=== PATIENT | male | born 1955 | race Caucasian/White ===

== ENCOUNTER 2020-12-07 09:29 | Inpatient (IN) | payer MEDICAID, OTHER ==
[~2020-12-07] VITALS: Ht 172.7 cm; Wt 83.7 kg
[~2020-12-07 09:29] MED LIST: ETOMIDATE 2MG/ML 10ML VIAL IV ONE; SUCCINYLCHOLINE CHLORIDE 200MG/10ML IV ONE
[2020-12-07] MEDS ORDERED: SUCCINYLCHOLINE CHLORIDE 200MG/10ML IV ONE (09:45)
[2020-12-07] MEDS ORDERED: ETOMIDATE 2MG/ML 10ML VIAL IV ONE (09:45)
[2020-12-07] MEDS ORDERED: PROPOFOL 10MG/ML 100ML 100 ML IV ONE (09:45)
[2020-12-07 09:57] LABS: HEMATOCRIT. 39.2 % (42.0-52.0); HEMOGLOBIN. 13.8 g/dL (14.0-18.0); MEAN CORPUSCULAR HEMOGLOBIN 31.8 pg (28.0-32.0); MEAN CORPUSCULAR VOLUME 90.2 fL (80.0-94.0); MEAN PLATELET VOLUME 7.1 fl (7.4-10.4); PLATELET 235 x1000/uL (130-400); RED BLOOD CELL COUNT 4.35 mill/uL (4.7-6.1); RED CELL DISTRIBUTION WIDTH 14.4 % (11.6-14.6)
[2020-12-07 10:04] LABS: CHLORIDE 109 mEq/L (98-107)
[2020-12-07 10:07] LABS: PROTHROMBIN TIME 11.1 sec (9.6-11.0)
[2020-12-07 10:09] LABS: ETHANOL BLOOD < 10 mg/dL
[2020-12-07 10:39] LABS: PLATELET ESTIMATE NORMAL
[2020-12-07 10:56] LABS: CLARITY URINE CLEAR (CLEAR); COLOR URINE DARK YELLOW (YELLOW); KETONES URINE NEGATIVE (NEGATIVE); LEUKOCYTE ESTERASE URINE NEGATIVE (NEGATIVE); NITRITE URINE NEGATIVE (NEGATIVE); OCCULT BLOOD URINE 3+ (NEGATIVE); PROTEIN URINE 3+ (NEGATIVE); SPECIFIC GRAVITY URINE 1.018 (1.005-1.030)
[2020-12-07 11:05] LABS: BG BASE EXCESS -5.3 mmol/L (-2.0-2.0); BG CARBOXYHEMOGLOBIN 0.6 % (0.5-1.5); BG DEOXYHEMOGLOBIN 10.1 % (0.0-5.0); BG HCO3 ACT 21.3 mmol/L (22.0-26.0); BG METHEMOGLOBIN 0.2 % (0.0-1.5); BG OXYGEN SATURATION 89.8 % (92.0-98.5); BG OXYHEMOGLOBIN 89.1 % (94.0-97.0); BG PCO2 45.6 mmHg (35.0-45.0); BG PH 7.287 (7.350-7.450); BG PO2 69.7 mmHg (75.0-100.0); BG SAMPLE SITE LEFT RADIAL; BG TOTAL HEMOGLOBIN 13.9 g/dL (12.0-18.0); BG VENT MODE VENT - AC
[2020-12-07] MEDS ORDERED: CEFTRIAXONE 1 G PREMIX 50 ML IV ONE (11:15)
[2020-12-07] MEDS ORDERED: AZITHROMYCIN 500 MG in DEXT 5% WATER 250 ML IV ONE (11:15)
[2020-12-07] MEDS ORDERED: DEXTROSE 50% WATER 50ML SYRINGE IV PRN (14:00)
[2020-12-07] MEDS ORDERED: IPRATROPIUM/ALBUTEROL 0.5-3(2.5)MG/3ML NEB NEB PRN (14:00)
[2020-12-07] MEDS ORDERED: DEXAMETHASONE 10 MG/ML VIAL IV SCH (15:00)
[2020-12-07] MEDS ORDERED: PROPOFOL 10MG/ML 100ML 100 ML IV PRN ×2 (15:15→15:30)
[2020-12-07] MEDS: DEXAMETHASONE 10 MG/ML VIAL IV SCH (15:17)
[2020-12-07] MEDS: ENOXAPARIN 30MG/0.3ML SYR SUBCUT SCH (16:00)
[2020-12-07] MEDS: BLOOD SUGAR DIAGNOSTIC STRIP TEST SCH ×2 (16:30→21:24)
[2020-12-07] MEDS: INSULIN LISPRO 100 UNITS/ML SUBCUT SCH ×2 (17:00→21:31)
[2020-12-07] MEDS: FAMOTIDINE 20MG/2ML VIAL IV SCH (21:25)
[2020-12-07] MEDS ORDERED: NOREPINEPHRINE 8MG/250ML PMX 250 ML IV PRN (22:15)
[2020-12-08] VITALS (24 sets, daily range): BP systolic 89–120; BP diastolic 52–72
[2020-12-08] MEDS: ENOXAPARIN 30MG/0.3ML SYR SUBCUT SCH (05:36)
[2020-12-08 05:39] LABS: CHLORIDE 107 mEq/L (98-107)
[2020-12-08 05:46] LABS: PHOSPHORUS 5.4 mg/dL (2.5-4.9)
[2020-12-08 05:55] LABS: HEMATOCRIT. 40.1 % (42.0-52.0); HEMOGLOBIN. 13.2 g/dL (14.0-18.0); MEAN CORPUSCULAR HEMOGLOBIN 30.6 pg (28.0-32.0); MEAN CORPUSCULAR VOLUME 92.6 fL (80.0-94.0); MEAN PLATELET VOLUME 7.8 fl (7.4-10.4); PLATELET 169 x1000/uL (130-400); RED BLOOD CELL COUNT 4.32 mill/uL (4.7-6.1); RED CELL DISTRIBUTION WIDTH 14.6 % (11.6-14.6)
[2020-12-08] MEDS: BLOOD SUGAR DIAGNOSTIC STRIP TEST SCH ×3 (06:57→20:04)
[2020-12-08] MEDS: INSULIN LISPRO 100 UNITS/ML SUBCUT SCH ×3 (07:14→20:12)
[2020-12-08 08:48] LABS: BG BASE EXCESS -6.2 mmol/L (-2.0-2.0); BG CARBOXYHEMOGLOBIN 0.3 % (0.5-1.5); BG DEOXYHEMOGLOBIN 0.9 % (0.0-5.0); BG FRACTION INSPIRED OXYGEN 100; BG HCO3 ACT 22.2 mmol/L (22.0-26.0); BG METHEMOGLOBIN 0.5 % (0.0-1.5); BG OXYGEN SATURATION 99.1 % (92.0-98.5); BG OXYHEMOGLOBIN 98.3 % (94.0-97.0); BG PCO2 55.5 mmHg (35.0-45.0); BG PH 7.219 (7.350-7.450); BG PO2 272.1 mmHg (75.0-100.0); BG SAMPLE SITE RIGHT RADIAL; BG TOTAL HEMOGLOBIN 14.9 g/dL (12.0-18.0); BG VENT MODE VENT - AC
[2020-12-08] MEDS ORDERED: FENTANYL CITRATE/PF 1,000 MCG in SODIUM CHLORIDE 0.9% 80 ML IV PRN (09:00)
[2020-12-08] MEDS: FAMOTIDINE 20MG/2ML VIAL IV SCH (09:10)
[2020-12-08] MEDS: DEXAMETHASONE 10 MG/ML VIAL IV SCH (09:10)
[2020-12-08] MEDS ORDERED: AZITHROMYCIN 500 MG in DEXT 5% WATER 250 ML IV SCH (10:00)
[2020-12-08] MEDS ORDERED: CEFTRIAXONE 1 G PREMIX 50 ML IV SCH (11:00)
[2020-12-08] MEDS: SODIUM CHLORIDE 0.9% 1,000 ML IV SCH ×2 (13:14→23:14)
[2020-12-08] MEDS ORDERED: VANCOMYCIN 2,000 MG in DEXT 5% WATER 500 ML IV NR (13:30)
[2020-12-08] MEDS ORDERED: SODIUM POLYSTYRENE SULFONATE 15 G/60 ML BOT PO SCH (14:00)
[2020-12-08 15:48] LABS: ATYPICAL LYMPHOCYTES 1; NUCLEATED RED BLOOD CELLS 1 /100 WBC
[2020-12-08 15:49] LABS: PLATELET ESTIMATE NORMAL
[2020-12-08] MEDS: PROPOFOL 10MG/ML 100ML 100 ML IV PRN ×2 (20:13→23:16)
[2020-12-09] VITALS (86 sets, daily range): BP systolic 76–129; BP diastolic 46–76
[2020-12-09] MEDS: BLOOD SUGAR DIAGNOSTIC STRIP TEST SCH ×4 (00:11→17:39)
[2020-12-09] MEDS: INSULIN LISPRO 100 UNITS/ML SUBCUT SCH ×4 (00:14→18:02)
[2020-12-09] MEDS: PROPOFOL 10MG/ML 100ML 100 ML IV PRN ×6 (03:59→20:59)
[2020-12-09] MEDS: ENOXAPARIN 40MG/0.4ML SYR SUBCUT SCH (05:20)
[2020-12-09 06:08] LABS: HEMATOCRIT. 33.8 % (42.0-52.0); HEMOGLOBIN. 11.3 g/dL (14.0-18.0); MEAN CORPUSCULAR HEMOGLOBIN 30.4 pg (28.0-32.0); MEAN CORPUSCULAR VOLUME 90.6 fL (80.0-94.0); MEAN PLATELET VOLUME 8.2 fl (7.4-10.4); PLATELET 184 x1000/uL (130-400); RED BLOOD CELL COUNT 3.73 mill/uL (4.7-6.1); RED CELL DISTRIBUTION WIDTH 14.1 % (11.6-14.6)
[2020-12-09 06:22] LABS: PHOSPHORUS 6.7 mg/dL (2.5-4.9)
[2020-12-09] MEDS ORDERED: NOREPINEPHRINE 8 MG in DEXTROSE 5% WATER 250 ML IV PRN (08:30)
[2020-12-09 09:55] LABS: BG BASE EXCESS -8.2 mmol/L (-2.0-2.0); BG CARBOXYHEMOGLOBIN 0.3 % (0.5-1.5); BG DEOXYHEMOGLOBIN 1.1 % (0.0-5.0); BG FRACTION INSPIRED OXYGEN 60; BG HCO3 ACT 19.7 mmol/L (22.0-26.0); BG METHEMOGLOBIN 0.3 % (0.0-1.5); BG OXYGEN SATURATION 98.9 % (92.0-98.5); BG OXYHEMOGLOBIN 98.3 % (94.0-97.0); BG PCO2 50.4 mmHg (35.0-45.0); BG PO2 167.6 mmHg (75.0-100.0); BG SAMPLE SITE RIGHT RADIAL; BG TOTAL HEMOGLOBIN 11.9 g/dL (12.0-18.0); BG VENT MODE VENT - AC
[2020-12-09] MEDS ORDERED: BISACODYL 10MG SUPP PR PRN (10:00)
[2020-12-09] MEDS: AZITHROMYCIN 500 MG in DEXT 5% WATER 250 ML IV SCH (10:20)
[2020-12-09] MEDS: FAMOTIDINE 20MG/2ML VIAL IV SCH (10:20)
[2020-12-09] MEDS: DOCUSATE SODIUM SUGAR FREE 100MG/10ML UDC NG SCH (10:20)
[2020-12-09] MEDS: DEXAMETHASONE 10 MG/ML VIAL IV SCH (10:20)
[2020-12-09] MEDS: SODIUM CHLORIDE 0.9% 1,000 ML IV SCH ×2 (10:21→19:00)
[2020-12-09] MEDS ORDERED: LIDOCAINE HCL 1% 20ML VIAL (Pyxis) INJ ONE (13:12)
[2020-12-09] MEDS: IPRATROPIUM/ALBUTEROL 0.5-3(2.5)MG/3ML NEB HHN SCH ×3 (16:10→20:31)
[2020-12-09 21:05] LABS: PLATELET ESTIMATE NORMAL
[2020-12-10] VITALS (94 sets, daily range): BP systolic 89–156; BP diastolic 45–86
[2020-12-10] MEDS: IPRATROPIUM/ALBUTEROL 0.5-3(2.5)MG/3ML NEB HHN SCH ×5 (00:27→15:58)
[2020-12-10] MEDS: BLOOD SUGAR DIAGNOSTIC STRIP TEST SCH ×4 (00:58→18:22)
[2020-12-10] MEDS: PROPOFOL 10MG/ML 100ML 100 ML IV PRN ×7 (01:00→22:40)
[2020-12-10] MEDS ORDERED: VANCOMYCIN 750 MG PREMIX 150 ML IV SCH (02:00)
[2020-12-10] MEDS: SODIUM CHLORIDE 0.9% 1,000 ML IV SCH ×2 (05:00→15:49)
[2020-12-10] MEDS: ENOXAPARIN 40MG/0.4ML SYR SUBCUT SCH (05:29)
[2020-12-10 05:42] LABS: HEMATOCRIT. 33.7 % (42.0-52.0); HEMOGLOBIN. 11.3 g/dL (14.0-18.0); MEAN CORPUSCULAR HEMOGLOBIN 30.7 pg (28.0-32.0); MEAN CORPUSCULAR VOLUME 91.4 fL (80.0-94.0); PLATELET 191 x1000/uL (130-400); RED BLOOD CELL COUNT 3.69 mill/uL (4.7-6.1)
[2020-12-10 05:56] LABS: PHOSPHORUS 5.4 mg/dL (2.5-4.9)
[2020-12-10] MEDS: INSULIN LISPRO 100 UNITS/ML SUBCUT SCH ×4 (06:00→18:33)
[2020-12-10] MEDS: DOCUSATE SODIUM SUGAR FREE 100MG/10ML UDC NG SCH (08:34)
[2020-12-10] MEDS: FENTANYL CITRATE 2,500 MCG in SODIUM CHLORIDE 0.9% 200 ML IV PRN (08:34)
[2020-12-10] MEDS: DEXAMETHASONE 10 MG/ML VIAL IV SCH (08:34)
[2020-12-10] MEDS: FAMOTIDINE 20MG/2ML VIAL IV SCH (08:34)
[2020-12-10 09:31] LABS: BG BASE EXCESS -8.4 mmol/L (-2.0-2.0); BG DEOXYHEMOGLOBIN 1.5 % (0.0-5.0); BG FRACTION INSPIRED OXYGEN 50; BG METHEMOGLOBIN 0.3 % (0.0-1.5); BG OXYGEN SATURATION 98.5 % (92.0-98.5); BG OXYHEMOGLOBIN 98.2 % (94.0-97.0); BG PCO2 40.5 mmHg (35.0-45.0); BG PH 7.266 (7.350-7.450); BG PO2 148.3 mmHg (75.0-100.0); BG SAMPLE SITE LEFT RADIAL; BG TOTAL HEMOGLOBIN 11.8 g/dL (12.0-18.0); BG VENT MODE VENT - AC
[2020-12-10] MEDS: AZITHROMYCIN 500 MG in DEXT 5% WATER 250 ML IV SCH (10:57)
[2020-12-10 10:58] LABS: PLATELET ESTIMATE NORMAL
[2020-12-10] MEDS ORDERED: VANCOMYCIN 1 G PREMIX 200 ML IV SCH (14:00)
[2020-12-10] MEDS: LACTULOSE 20G/30ML UDC PO PRN (18:22)
[2020-12-10] MEDS: ONDANSETRON HCL 4MG/2ML INJ IV PRN (22:02)
[2020-12-11] VITALS (88 sets, daily range): BP systolic 96–142; BP diastolic 21–73
[2020-12-11] MEDS: IPRATROPIUM/ALBUTEROL 0.5-3(2.5)MG/3ML NEB HHN SCH ×5 (04:30→20:30)
[2020-12-11] MEDS: BLOOD SUGAR DIAGNOSTIC STRIP TEST SCH ×4 (05:44→17:25)
[2020-12-11] MEDS: SODIUM CHLORIDE 0.9% 1,000 ML IV SCH ×2 (05:45→12:20)
[2020-12-11] MEDS: ENOXAPARIN 40MG/0.4ML SYR SUBCUT SCH (05:46)
[2020-12-11] MEDS: PROPOFOL 10MG/ML 100ML 100 ML IV PRN ×5 (05:47→22:19)
[2020-12-11] MEDS: FENTANYL CITRATE 2,500 MCG in SODIUM CHLORIDE 0.9% 200 ML IV PRN (05:49)
[2020-12-11] MEDS: INSULIN LISPRO 100 UNITS/ML SUBCUT SCH ×4 (06:00→17:27)
[2020-12-11 06:24] LABS: HEMATOCRIT. 31.8 % (42.0-52.0); HEMOGLOBIN. 10.6 g/dL (14.0-18.0); MEAN CORPUSCULAR HEMOGLOBIN 30.5 pg (28.0-32.0); MEAN CORPUSCULAR VOLUME 91.2 fL (80.0-94.0); MEAN PLATELET VOLUME 7.7 fl (7.4-10.4); PLATELET 181 x1000/uL (130-400); RED BLOOD CELL COUNT 3.48 mill/uL (4.7-6.1); RED CELL DISTRIBUTION WIDTH 14.2 % (11.6-14.6)
[2020-12-11 09:18] LABS: BG BASE EXCESS -7.5 mmol/L (-2.0-2.0); BG CARBOXYHEMOGLOBIN 0.1 % (0.5-1.5); BG DEOXYHEMOGLOBIN 3.5 % (0.0-5.0); BG FRACTION INSPIRED OXYGEN 40; BG HCO3 ACT 18.2 mmol/L (22.0-26.0); BG METHEMOGLOBIN 0.3 % (0.0-1.5); BG OXYGEN SATURATION 96.5 % (92.0-98.5); BG OXYHEMOGLOBIN 96.1 % (94.0-97.0); BG PCO2 37.4 mmHg (35.0-45.0); BG PH 7.304 (7.350-7.450); BG PO2 92.5 mmHg (75.0-100.0); BG SAMPLE SITE LEFT RADIAL; BG TOTAL HEMOGLOBIN 11.2 g/dL (12.0-18.0); BG VENT MODE VENT - AC
[2020-12-11] MEDS: AZITHROMYCIN 500 MG in DEXT 5% WATER 250 ML IV SCH (09:21)
[2020-12-11] MEDS: DEXAMETHASONE 10 MG/ML VIAL IV SCH (09:21)
[2020-12-11] MEDS: FAMOTIDINE 20MG/2ML VIAL IV SCH (09:21)
[2020-12-11] MEDS: DOCUSATE SODIUM SUGAR FREE 100MG/10ML UDC NG SCH (09:21)
[2020-12-11] MEDS: LACTULOSE 20G/30ML UDC PO PRN (12:06)
[2020-12-11 13:14] LABS: PHOSPHORUS 3.9 mg/dL (2.5-4.9)
[2020-12-11 13:40] LABS: PLATELET ESTIMATE NORMAL
[2020-12-11] MEDS ORDERED: PROPOFOL 10MG/ML 100ML 100 ML IV PRN (15:30)
[2020-12-11] MEDS: ONDANSETRON HCL 4MG/2ML INJ IV PRN (22:20)
[2020-12-12] VITALS (87 sets, daily range): BP systolic 102–182; BP diastolic 51–99
[2020-12-12] MEDS: IPRATROPIUM/ALBUTEROL 0.5-3(2.5)MG/3ML NEB HHN SCH ×6 (00:33→21:20)
[2020-12-12] MEDS: BLOOD SUGAR DIAGNOSTIC STRIP TEST SCH ×5 (00:35→23:49)
[2020-12-12] MEDS: PROPOFOL 10MG/ML 100ML 100 ML IV PRN ×6 (02:03→20:00)
[2020-12-12] MEDS: FENTANYL CITRATE 2,500 MCG in SODIUM CHLORIDE 0.9% 200 ML IV PRN ×2 (02:06→15:30)
[2020-12-12 05:11] LABS: HEMATOCRIT. 33.1 % (42.0-52.0); HEMOGLOBIN. 11.3 g/dL (14.0-18.0); MEAN CORPUSCULAR HEMOGLOBIN 30.7 pg (28.0-32.0); MEAN CORPUSCULAR VOLUME 89.9 fL (80.0-94.0); MEAN PLATELET VOLUME 7.8 fl (7.4-10.4); PLATELET 201 x1000/uL (130-400); RED BLOOD CELL COUNT 3.68 mill/uL (4.7-6.1); RED CELL DISTRIBUTION WIDTH 14.5 % (11.6-14.6)
[2020-12-12 05:25] LABS: PHOSPHORUS 3.8 mg/dL (2.5-4.9)
[2020-12-12] MEDS: INSULIN LISPRO 100 UNITS/ML SUBCUT SCH ×5 (06:00→23:50)
[2020-12-12] MEDS: SODIUM CHLORIDE 0.9% 1,000 ML IV SCH ×3 (06:23→21:59)
[2020-12-12] MEDS: ENOXAPARIN 40MG/0.4ML SYR SUBCUT SCH (06:24)
[2020-12-12 08:05] LABS: PLATELET ESTIMATE NORMAL
[2020-12-12 08:54] LABS: BG BASE EXCESS -9.5 mmol/L (-2.0-2.0); BG CARBOXYHEMOGLOBIN 0.3 % (0.5-1.5); BG DEOXYHEMOGLOBIN 2.8 % (0.0-5.0); BG HCO3 ACT 15.5 mmol/L (22.0-26.0); BG METHEMOGLOBIN 0.3 % (0.0-1.5); BG OXYGEN SATURATION 97.2 % (92.0-98.5); BG OXYHEMOGLOBIN 96.6 % (94.0-97.0); BG PCO2 30.8 mmHg (35.0-45.0); BG PH 7.319 (7.350-7.450); BG PO2 103.2 mmHg (75.0-100.0); BG SAMPLE SITE RIGHT RADIAL; BG TOTAL HEMOGLOBIN 11.2 g/dL (12.0-18.0); BG VENT MODE VENT - AC
[2020-12-12] MEDS: FAMOTIDINE 20MG/2ML VIAL IV SCH (09:10)
[2020-12-12] MEDS: DOCUSATE SODIUM SUGAR FREE 100MG/10ML UDC NG SCH (09:10)
[2020-12-12] MEDS: DEXAMETHASONE 10 MG/ML VIAL IV SCH (09:11)
[2020-12-12] MEDS ORDERED: SODIUM POLYSTYRENE SULFONATE 15 G/60 ML BOT PO NR (12:15)
[2020-12-12] MEDS: ONDANSETRON HCL 4MG/2ML INJ IV PRN (20:01)
[2020-12-12] MEDS: ENOXAPARIN 30MG/0.3ML SYR SUBCUT SCH (21:58)
[2020-12-13] VITALS (83 sets, daily range): BP systolic 102–186; BP diastolic 51–134
[2020-12-13] MEDS: IPRATROPIUM/ALBUTEROL 0.5-3(2.5)MG/3ML NEB HHN SCH ×6 (00:40→20:14)
[2020-12-13] MEDS: PROPOFOL 10MG/ML 100ML 100 ML IV PRN ×4 (02:27→19:11)
[2020-12-13] MEDS: FENTANYL CITRATE 2,500 MCG in SODIUM CHLORIDE 0.9% 200 ML IV PRN ×2 (02:31→16:05)
[2020-12-13 05:16] LABS: HEMATOCRIT. 33.7 % (42.0-52.0); HEMOGLOBIN. 11.3 g/dL (14.0-18.0); MEAN CORPUSCULAR HEMOGLOBIN 30.6 pg (28.0-32.0); MEAN CORPUSCULAR VOLUME 90.9 fL (80.0-94.0); MEAN PLATELET VOLUME 7.6 fl (7.4-10.4); PLATELET 237 x1000/uL (130-400); RED CELL DISTRIBUTION WIDTH 14.5 % (11.6-14.6)
[2020-12-13 05:41] LABS: PHOSPHORUS 3.2 mg/dL (2.5-4.9)
[2020-12-13] MEDS: BLOOD SUGAR DIAGNOSTIC STRIP TEST SCH ×3 (05:57→17:39)
[2020-12-13] MEDS: INSULIN LISPRO 100 UNITS/ML SUBCUT SCH ×3 (05:57→17:59)
[2020-12-13] MEDS: DEXAMETHASONE 10 MG/ML VIAL IV SCH (08:07)
[2020-12-13] MEDS: DOCUSATE SODIUM SUGAR FREE 100MG/10ML UDC NG SCH (08:07)
[2020-12-13] MEDS: FAMOTIDINE 20MG/2ML VIAL IV SCH (08:08)
[2020-12-13] MEDS: ENOXAPARIN 30MG/0.3ML SYR SUBCUT SCH ×2 (08:09→22:29)
[2020-12-13] MEDS: SODIUM CHLORIDE 0.9% 1,000 ML IV SCH (08:18)
[2020-12-13 11:57] LABS: PLATELET ESTIMATE NORMAL
[2020-12-13 12:58] LABS: BG BASE EXCESS -6.5 mmol/L (-2.0-2.0); BG CARBOXYHEMOGLOBIN 0.3 % (0.5-1.5); BG DEOXYHEMOGLOBIN 2.8 % (0.0-5.0); BG FRACTION INSPIRED OXYGEN 40; BG OXYGEN SATURATION 97.2 % (92.0-98.5); BG OXYHEMOGLOBIN 96.9 % (94.0-97.0); BG PCO2 32.3 mmHg (35.0-45.0); BG PH 7.365 (7.350-7.450); BG PO2 105.8 mmHg (75.0-100.0); BG SAMPLE SITE LEFT RADIAL; BG TOTAL HEMOGLOBIN 9.2 g/dL (12.0-18.0); BG VENT MODE VENT - AC
[2020-12-13] MEDS: ONDANSETRON HCL 4MG/2ML INJ IV PRN (21:21)
[2020-12-14] VITALS (89 sets, daily range): BP systolic 108–194; BP diastolic 51–109
[2020-12-14] MEDS: IPRATROPIUM/ALBUTEROL 0.5-3(2.5)MG/3ML NEB HHN SCH ×6 (00:04→21:31)
[2020-12-14] MEDS: BLOOD SUGAR DIAGNOSTIC STRIP TEST SCH ×4 (00:12→18:06)
[2020-12-14] MEDS: PROPOFOL 10MG/ML 100ML 100 ML IV PRN ×5 (01:47→17:32)
[2020-12-14] MEDS: SODIUM CHLORIDE 0.9% 1,000 ML IV SCH ×2 (01:48→21:20)
[2020-12-14] MEDS: FENTANYL CITRATE 2,500 MCG in SODIUM CHLORIDE 0.9% 200 ML IV PRN ×2 (03:50→17:34)
[2020-12-14 04:58] LABS: HEMATOCRIT. 33.1 % (42.0-52.0); HEMOGLOBIN. 11.3 g/dL (14.0-18.0); MEAN CORPUSCULAR HEMOGLOBIN 31.1 pg (28.0-32.0); MEAN CORPUSCULAR VOLUME 91.2 fL (80.0-94.0); MEAN PLATELET VOLUME 7.5 fl (7.4-10.4); PLATELET 246 x1000/uL (130-400); RED BLOOD CELL COUNT 3.63 mill/uL (4.7-6.1); RED CELL DISTRIBUTION WIDTH 14.4 % (11.6-14.6)
[2020-12-14 05:27] LABS: CHLORIDE 120 mEq/L (98-107)
[2020-12-14 05:37] LABS: PHOSPHORUS 3.9 mg/dL (2.5-4.9)
[2020-12-14] MEDS: INSULIN LISPRO 100 UNITS/ML SUBCUT SCH ×4 (06:00→18:00)
[2020-12-14] MEDS: DEXAMETHASONE 10 MG/ML VIAL IV SCH (08:26)
[2020-12-14] MEDS: DOCUSATE SODIUM SUGAR FREE 100MG/10ML UDC NG SCH (08:26)
[2020-12-14] MEDS: ENOXAPARIN 30MG/0.3ML SYR SUBCUT SCH ×2 (08:26→21:14)
[2020-12-14] MEDS: FAMOTIDINE 20MG/2ML VIAL IV SCH (08:27)
[2020-12-14] MEDS: HYDRALAZINE 20MG/ML VIAL IV PRN (09:28)
[2020-12-14 10:57] LABS: BG BASE EXCESS -6.7 mmol/L (-2.0-2.0); BG CARBOXYHEMOGLOBIN 0.1 % (0.5-1.5); BG DEOXYHEMOGLOBIN 4.1 % (0.0-5.0); BG FRACTION INSPIRED OXYGEN 40; BG HCO3 ACT 17.9 mmol/L (22.0-26.0); BG METHEMOGLOBIN 0.3 % (0.0-1.5); BG OXYGEN SATURATION 95.9 % (92.0-98.5); BG OXYHEMOGLOBIN 95.5 % (94.0-97.0); BG PCO2 33.1 mmHg (35.0-45.0); BG PH 7.352 (7.350-7.450); BG PO2 84.6 mmHg (75.0-100.0); BG SAMPLE SITE LEFT RADIAL; BG TOTAL HEMOGLOBIN 12.7 g/dL (12.0-18.0); BG VENT MODE VENT - AC
[2020-12-14 11:29] LABS: PLATELET ESTIMATE NORMAL
[2020-12-15] VITALS (73 sets, daily range): BP systolic 103–219; BP diastolic 50–121
[2020-12-15] MEDS: BLOOD SUGAR DIAGNOSTIC STRIP TEST SCH ×4 (00:07→17:48)
[2020-12-15] MEDS: PROPOFOL 10MG/ML 100ML 100 ML IV PRN ×2 (00:10→03:41)
[2020-12-15] MEDS: IPRATROPIUM/ALBUTEROL 0.5-3(2.5)MG/3ML NEB HHN SCH ×6 (01:26→21:05)
[2020-12-15] MEDS: FENTANYL CITRATE 2,500 MCG in SODIUM CHLORIDE 0.9% 200 ML IV PRN (04:54)
[2020-12-15 05:31] LABS: CHLORIDE 117 mEq/L (98-107)
[2020-12-15 05:40] LABS: HEMATOCRIT. 32.1 % (42.0-52.0); HEMOGLOBIN. 10.8 g/dL (14.0-18.0); MEAN CORPUSCULAR HEMOGLOBIN 30.7 pg (28.0-32.0); MEAN CORPUSCULAR VOLUME 91.8 fL (80.0-94.0); MEAN PLATELET VOLUME 7.2 fl (7.4-10.4); PHOSPHORUS 3.8 mg/dL (2.5-4.9); PLATELET 238 x1000/uL (130-400); RED CELL DISTRIBUTION WIDTH 14.6 % (11.6-14.6)
[2020-12-15] MEDS: INSULIN LISPRO 100 UNITS/ML SUBCUT SCH ×4 (05:42→17:48)
[2020-12-15] MEDS ORDERED: SODIUM POLYSTYRENE SULFONATE 15 G/60 ML BOT PO NR (08:30)
[2020-12-15 08:36] LABS: PLATELET ESTIMATE NORMAL
[2020-12-15 10:18] LABS: BG BASE EXCESS -4.6 mmol/L (-2.0-2.0); BG CARBOXYHEMOGLOBIN 0.5 % (0.5-1.5); BG FRACTION INSPIRED OXYGEN 40; BG HCO3 ACT 21.4 mmol/L (22.0-26.0); BG METHEMOGLOBIN 0.1 % (0.0-1.5); BG OXYHEMOGLOBIN 93.4 % (94.0-97.0); BG PH 7.314 (7.350-7.450); BG PO2 73.3 mmHg (75.0-100.0); BG SAMPLE SITE LEFT RADIAL; BG TOTAL HEMOGLOBIN 11.5 g/dL (12.0-18.0); BG VENT MODE VENT - AC
[2020-12-15] MEDS: DOCUSATE SODIUM SUGAR FREE 100MG/10ML UDC NG SCH (10:45)
[2020-12-15] MEDS: FAMOTIDINE 20MG/2ML VIAL IV SCH (10:45)
[2020-12-15] MEDS: DEXAMETHASONE 10 MG/ML VIAL IV SCH (10:45)
[2020-12-15] MEDS: ENOXAPARIN 30MG/0.3ML SYR SUBCUT SCH ×2 (10:46→21:07)
[2020-12-15] MEDS: HYDRALAZINE 20MG/ML VIAL IV PRN ×2 (10:50→18:08)
[2020-12-15 13:25] LABS: BG BASE EXCESS -4.7 mmol/L (-2.0-2.0); BG CARBOXYHEMOGLOBIN 0.4 % (0.5-1.5); BG DEOXYHEMOGLOBIN 6.5 % (0.0-5.0); BG FRACTION INSPIRED OXYGEN 40; BG HCO3 ACT 20.9 mmol/L (22.0-26.0); BG METHEMOGLOBIN 0.5 % (0.0-1.5); BG OXYGEN SATURATION 93.4 % (92.0-98.5); BG OXYHEMOGLOBIN 92.6 % (94.0-97.0); BG PCO2 40.7 mmHg (35.0-45.0); BG PH 7.329 (7.350-7.450); BG PO2 71.3 mmHg (75.0-100.0); BG SAMPLE SITE RIGHT RADIAL; BG TOTAL HEMOGLOBIN 12.9 g/dL (12.0-18.0); BG VENT MODE VENT - CPAP
[2020-12-15] MEDS: HYDRALAZINE HCL 25MG TABLET NG SCH ×2 (13:47→21:06)
[2020-12-15] MEDS: SODIUM CHLORIDE 0.9% 1,000 ML IV SCH (18:08)
[2020-12-15] MEDS ORDERED: HYDRALAZINE 20MG/ML VIAL IV PRN (18:45)
[2020-12-15] MEDS: CLONIDINE 0.1MG TABLET NG SCH ×2 (18:46→21:06)
[2020-12-15] MEDS ORDERED: HYDRALAZINE 20MG/ML VIAL IV NR (19:15)
[2020-12-15] MEDS ORDERED: CLONIDINE 0.1MG TABLET NG SCH (22:00)
[2020-12-16] VITALS (90 sets, daily range): BP systolic 121–198; BP diastolic 63–96
[2020-12-16] MEDS: IPRATROPIUM/ALBUTEROL 0.5-3(2.5)MG/3ML NEB HHN SCH ×6 (01:05→21:04)
[2020-12-16] MEDS: FENTANYL CITRATE 2,500 MCG in SODIUM CHLORIDE 0.9% 200 ML IV PRN (01:07)
[2020-12-16] MEDS: BLOOD SUGAR DIAGNOSTIC STRIP TEST SCH ×4 (05:56→17:07)
[2020-12-16] MEDS: CLONIDINE 0.1MG TABLET NG SCH ×3 (06:00→20:50)
[2020-12-16] MEDS: HYDRALAZINE HCL 25MG TABLET NG SCH (06:00)
[2020-12-16] MEDS: INSULIN LISPRO 100 UNITS/ML SUBCUT SCH ×4 (06:01→17:14)
[2020-12-16 08:44] LABS: HEMATOCRIT. 32.2 % (42.0-52.0); MEAN CORPUSCULAR HEMOGLOBIN 31.4 pg (28.0-32.0); MEAN CORPUSCULAR VOLUME 91.5 fL (80.0-94.0); MEAN PLATELET VOLUME 7.9 fl (7.4-10.4); PLATELET 251 x1000/uL (130-400); RED BLOOD CELL COUNT 3.51 mill/uL (4.7-6.1); RED CELL DISTRIBUTION WIDTH 14.2 % (11.6-14.6)
[2020-12-16 09:01] LABS: CHLORIDE 117 mEq/L (98-107)
[2020-12-16 09:07] LABS: PHOSPHORUS 2.8 mg/dL (2.5-4.9)
[2020-12-16 09:20] LABS: BG BASE EXCESS -1.8 mmol/L (-2.0-2.0); BG CARBOXYHEMOGLOBIN 0.4 % (0.5-1.5); BG DEOXYHEMOGLOBIN 4.1 % (0.0-5.0); BG FRACTION INSPIRED OXYGEN 40; BG HCO3 ACT 23.3 mmol/L (22.0-26.0); BG METHEMOGLOBIN 0.1 % (0.0-1.5); BG OXYGEN SATURATION 95.9 % (92.0-98.5); BG OXYHEMOGLOBIN 95.4 % (94.0-97.0); BG PCO2 40.5 mmHg (35.0-45.0); BG PH 7.377 (7.350-7.450); BG PO2 83.3 mmHg (75.0-100.0); BG SAMPLE SITE RIGHT RADIAL; BG TOTAL HEMOGLOBIN 11.8 g/dL (12.0-18.0); BG TOTAL RESPIRATORY RATE 21 b/min; BG VENT MODE VENT - SIMV
[2020-12-16] MEDS: LACTULOSE 20G/30ML UDC PO PRN (09:36)
[2020-12-16] MEDS: FAMOTIDINE 20MG/2ML VIAL IV SCH (09:37)
[2020-12-16] MEDS: DOCUSATE SODIUM SUGAR FREE 100MG/10ML UDC NG SCH (09:37)
[2020-12-16] MEDS: DEXAMETHASONE 10 MG/ML VIAL IV SCH (09:37)
[2020-12-16] MEDS: ENOXAPARIN 30MG/0.3ML SYR SUBCUT SCH ×2 (09:37→19:51)
[2020-12-16] MEDS ORDERED: MORPHINE SULFATE 2 MG/ML CPJ (NOT FOR IM USE) IV PRN (11:15)
[2020-12-16] MEDS ORDERED: LORAZEPAM 2MG/ML CPJ IV PRN (11:15)
[2020-12-16] MEDS ORDERED: NALOXONE HCL 0.4MG/ML VIAL IV PRN (11:15)
[2020-12-16 11:35] LABS: PLATELET ESTIMATE NORMAL
[2020-12-16] MEDS: ACETAMINOPHEN 650MG/20.3ML UDC NG PRN ×2 (11:40→17:30)
[2020-12-16] MEDS: HYDRALAZINE HCL 50MG TABLET NG SCH ×2 (13:02→20:50)
[2020-12-16] MEDS: AMLODIPINE 10MG TABLET PO SCH (13:02)
[2020-12-16] MEDS: HYDRALAZINE 20MG/ML VIAL IV PRN (17:13)
[2020-12-17] VITALS (51 sets, daily range): BP systolic 122–177; BP diastolic 60–90
[2020-12-17] MEDS: INSULIN LISPRO 100 UNITS/ML SUBCUT SCH ×5 (00:43→23:39)
[2020-12-17] MEDS: IPRATROPIUM/ALBUTEROL 0.5-3(2.5)MG/3ML NEB HHN SCH ×5 (01:35→20:38)
[2020-12-17 05:24] LABS: HEMATOCRIT. 32.8 % (42.0-52.0); HEMOGLOBIN. 11.2 g/dL (14.0-18.0); MEAN CORPUSCULAR HEMOGLOBIN 31.3 pg (28.0-32.0); MEAN CORPUSCULAR VOLUME 91.4 fL (80.0-94.0); MEAN PLATELET VOLUME 7.9 fl (7.4-10.4); PLATELET 258 x1000/uL (130-400); RED BLOOD CELL COUNT 3.59 mill/uL (4.7-6.1); RED CELL DISTRIBUTION WIDTH 14.2 % (11.6-14.6)
[2020-12-17] MEDS: CLONIDINE 0.1MG TABLET NG SCH ×3 (05:31→20:55)
[2020-12-17] MEDS: HYDRALAZINE HCL 50MG TABLET NG SCH ×3 (05:31→20:55)
[2020-12-17] MEDS: BLOOD SUGAR DIAGNOSTIC STRIP TEST SCH ×5 (05:39→23:39)
[2020-12-17 05:54] LABS: PHOSPHORUS 2.6 mg/dL (2.5-4.9)
[2020-12-17] MEDS: DOCUSATE SODIUM SUGAR FREE 100MG/10ML UDC NG SCH (09:14)
[2020-12-17] MEDS: DEXAMETHASONE 10 MG/ML VIAL IV SCH (09:15)
[2020-12-17] MEDS: FAMOTIDINE 20MG/2ML VIAL IV SCH (09:15)
[2020-12-17] MEDS: AMLODIPINE 10MG TABLET PO SCH (09:15)
[2020-12-17] MEDS: ENOXAPARIN 30MG/0.3ML SYR SUBCUT SCH ×2 (09:16→20:56)
[2020-12-17] MEDS: METOPROLOL TARTRATE 25MG TABLET PO SCH ×2 (12:19→20:53)
[2020-12-17 12:39] LABS: BG BASE EXCESS 0.6 mmol/L (-2.0-2.0); BG DEOXYHEMOGLOBIN 3.7 % (0.0-5.0); BG FRACTION INSPIRED OXYGEN 40; BG HCO3 ACT 25.7 mmol/L (22.0-26.0); BG METHEMOGLOBIN 0.3 % (0.0-1.5); BG OXYGEN SATURATION 96.3 % (92.0-98.5); BG PCO2 43.4 mmHg (35.0-45.0); BG PH 7.391 (7.350-7.450); BG PO2 85.8 mmHg (75.0-100.0); BG SAMPLE SITE RIGHT BRACHIAL; BG TOTAL HEMOGLOBIN 12.1 g/dL (12.0-18.0); BG TOTAL RESPIRATORY RATE 34 b/min; BG VENT MODE VENT - CPAP
[2020-12-17 13:05] LABS: PLATELET ESTIMATE NORMAL
[2020-12-17] MEDS: HYDRALAZINE 20MG/ML VIAL IV PRN (22:31)
[2020-12-18] VITALS (43 sets, daily range): BP systolic 110–190; BP diastolic 47–91
[2020-12-18] MEDS: IPRATROPIUM/ALBUTEROL 0.5-3(2.5)MG/3ML NEB HHN SCH ×6 (00:15→23:55)
[2020-12-18] MEDS: HYDRALAZINE 20MG/ML VIAL IV PRN ×2 (02:38→11:11)
[2020-12-18 05:26] LABS: HEMATOCRIT. 34.4 % (42.0-52.0); HEMOGLOBIN. 11.6 g/dL (14.0-18.0); MEAN CORPUSCULAR HEMOGLOBIN 30.6 pg (28.0-32.0); MEAN PLATELET VOLUME 8.9 fl (7.4-10.4); PLATELET 247 x1000/uL (130-400); RED BLOOD CELL COUNT 3.78 mill/uL (4.7-6.1)
[2020-12-18 05:27] LABS: CHLORIDE 113 mEq/L (98-107)
[2020-12-18 05:34] LABS: PHOSPHORUS 2.7 mg/dL (2.5-4.9)
[2020-12-18] MEDS: BLOOD SUGAR DIAGNOSTIC STRIP TEST SCH ×3 (06:00→18:02)
[2020-12-18] MEDS: INSULIN LISPRO 100 UNITS/ML SUBCUT SCH ×3 (06:01→19:12)
[2020-12-18] MEDS: CLONIDINE 0.1MG TABLET NG SCH ×3 (06:05→21:10)
[2020-12-18] MEDS: HYDRALAZINE HCL 50MG TABLET NG SCH (06:05)
[2020-12-18] MEDS: DEXAMETHASONE 10 MG/ML VIAL IV SCH (08:39)
[2020-12-18] MEDS: FAMOTIDINE 20MG/2ML VIAL IV SCH (08:40)
[2020-12-18] MEDS: ENOXAPARIN 30MG/0.3ML SYR SUBCUT SCH ×2 (08:42→20:22)
[2020-12-18] MEDS: DOCUSATE SODIUM SUGAR FREE 100MG/10ML UDC NG SCH (08:42)
[2020-12-18] MEDS: AMLODIPINE 10MG TABLET PO SCH ×2 (08:43→20:22)
[2020-12-18] MEDS: METOPROLOL TARTRATE 25MG TABLET PO SCH ×2 (08:43→20:22)
[2020-12-18 09:37] LABS: PLATELET ESTIMATE NORMAL
[2020-12-18 12:21] LABS: BG BASE EXCESS 2.9 mmol/L (-2.0-2.0); BG CARBOXYHEMOGLOBIN 0.9 % (0.5-1.5); BG DEOXYHEMOGLOBIN 5.9 % (0.0-5.0); BG HCO3 ACT 27.7 mmol/L (22.0-26.0); BG METHEMOGLOBIN 0.2 % (0.0-1.5); BG PCO2 43.4 mmHg (35.0-45.0); BG PH 7.423 (7.350-7.450); BG PO2 68.5 mmHg (75.0-100.0); BG SAMPLE SITE RIGHT RADIAL; BG VENT MODE MASK - VENTI
[2020-12-18] MEDS: ACETYLCYSTEINE 100MG/ML 10% VIAL 4ML INH SCH ×2 (12:46→23:55)
[2020-12-18] MEDS ORDERED: HYDRALAZINE HCL 50MG TABLET NG SCH (14:00)
[2020-12-18] MEDS: HYDRALAZINE HCL 100MG TABLET NG SCH ×2 (15:13→21:10)
[2020-12-18] MEDS: LACTULOSE 20G/30ML UDC PO PRN (16:25)
[2020-12-19] VITALS (12 sets, daily range): BP systolic 110–158; BP diastolic 68–89
[2020-12-19] MEDS: BLOOD SUGAR DIAGNOSTIC STRIP TEST SCH ×4 (00:06→18:00)
[2020-12-19] MEDS: IPRATROPIUM/ALBUTEROL 0.5-3(2.5)MG/3ML NEB HHN SCH ×4 (04:18→20:45)
[2020-12-19 05:16] LABS: HEMATOCRIT. 37.1 % (42.0-52.0); MEAN CORPUSCULAR HEMOGLOBIN 30.2 pg (28.0-32.0); MEAN CORPUSCULAR VOLUME 93.3 fL (80.0-94.0); MEAN PLATELET VOLUME 7.7 fl (7.4-10.4); PLATELET 283 x1000/uL (130-400); RED BLOOD CELL COUNT 3.98 mill/uL (4.7-6.1); RED CELL DISTRIBUTION WIDTH 14.3 % (11.6-14.6)
[2020-12-19 05:23] LABS: PHOSPHORUS 3.4 mg/dL (2.5-4.9)
[2020-12-19] MEDS: INSULIN LISPRO 100 UNITS/ML SUBCUT SCH ×4 (06:00→19:28)
[2020-12-19] MEDS: HYDRALAZINE HCL 100MG TABLET NG SCH ×3 (06:42→21:05)
[2020-12-19] MEDS: CLONIDINE 0.1MG TABLET NG SCH ×3 (06:43→21:05)
[2020-12-19] MEDS: ACETYLCYSTEINE 100MG/ML 10% VIAL 4ML INH SCH ×2 (07:24→15:19)
[2020-12-19] MEDS ORDERED: ISOSORBIDE MONONITRATE 30MG TABLET SR 24HR PO SCH (10:00)
[2020-12-19] MEDS ORDERED: KCL 20MEQ/100ML PREMIX 100 ML IV NR (10:00)
[2020-12-19] MEDS: FAMOTIDINE 20MG/2ML VIAL IV SCH (10:01)
[2020-12-19] MEDS: AMLODIPINE 10MG TABLET PO SCH ×2 (10:02→21:06)
[2020-12-19] MEDS: DOCUSATE SODIUM SUGAR FREE 100MG/10ML UDC NG SCH (10:03)
[2020-12-19] MEDS: ENOXAPARIN 30MG/0.3ML SYR SUBCUT SCH (10:03)
[2020-12-19] MEDS: DEXAMETHASONE 4MG TABLET PO SCH (10:03)
[2020-12-19] MEDS ORDERED: METOPROLOL TARTRATE 50MG TABLET PO SCH ×2 (11:00→21:00)
[2020-12-19] MEDS ORDERED: METOPROLOL TARTRATE 5MG/5ML VIAL IV NR (11:30)
[2020-12-19] MEDS ORDERED: SODIUM CHLORIDE 0.45% 250 ML IV ONE ×2 (11:45→12:00)
[2020-12-19] MEDS ORDERED: METOPROLOL TARTRATE 5MG/5ML VIAL IV PRN (11:45)
[2020-12-19 13:31] LABS: PLATELET ESTIMATE NORMAL
[2020-12-19] MEDS: ENOXAPARIN 100MG/ML SYR SUBCUT SCH (19:46)
[2020-12-19] MEDS: METOPROLOL TARTRATE 25MG TABLET PO SCH (21:05)
[2020-12-19] MEDS: LACTULOSE 20G/30ML UDC PO PRN (21:06)
[2020-12-20] VITALS (12 sets, daily range): BP systolic 101–133; BP diastolic 57–70
[2020-12-20] MEDS: ACETYLCYSTEINE 100MG/ML 10% VIAL 4ML INH SCH ×5 (00:16→21:38)
[2020-12-20] MEDS: BLOOD SUGAR DIAGNOSTIC STRIP TEST SCH ×4 (00:20→17:15)
[2020-12-20] MEDS: IPRATROPIUM/ALBUTEROL 0.5-3(2.5)MG/3ML NEB HHN SCH ×6 (00:49→20:22)
[2020-12-20] MEDS: ENOXAPARIN 100MG/ML SYR SUBCUT SCH ×2 (05:56→17:49)
[2020-12-20] MEDS: INSULIN LISPRO 100 UNITS/ML SUBCUT SCH ×4 (05:58→17:49)
[2020-12-20 06:08] LABS: HEMATOCRIT. 33.6 % (42.0-52.0); MEAN CORPUSCULAR HEMOGLOBIN 30.5 pg (28.0-32.0); MEAN PLATELET VOLUME 7.4 fl (7.4-10.4); PLATELET 281 x1000/uL (130-400); RED BLOOD CELL COUNT 3.62 mill/uL (4.7-6.1); RED CELL DISTRIBUTION WIDTH 13.8 % (11.6-14.6)
[2020-12-20 06:51] LABS: PHOSPHORUS 3.1 mg/dL (2.5-4.9)
[2020-12-20] MEDS: HYDRALAZINE HCL 100MG TABLET NG SCH ×3 (07:32→21:35)
[2020-12-20] MEDS: CLONIDINE 0.1MG TABLET NG SCH ×3 (07:33→21:35)
[2020-12-20 08:25] LABS: BG BASE EXCESS 1.9 mmol/L (-2.0-2.0); BG CARBOXYHEMOGLOBIN 0.5 % (0.5-1.5); BG HCO3 ACT 28.3 mmol/L (22.0-26.0); BG METHEMOGLOBIN 0.3 % (0.0-1.5); BG OXYHEMOGLOBIN 93.2 % (94.0-97.0); BG PCO2 52.6 mmHg (35.0-45.0); BG PH 7.348 (7.350-7.450); BG PO2 73.6 mmHg (75.0-100.0); BG SAMPLE SITE RIGHT RADIAL; BG TOTAL HEMOGLOBIN 10.9 g/dL (12.0-18.0); BG VENT MODE MASK - VENTI
[2020-12-20] MEDS: METOPROLOL TARTRATE 25MG TABLET PO SCH ×2 (08:36→20:56)
[2020-12-20] MEDS: DOCUSATE SODIUM SUGAR FREE 100MG/10ML UDC NG SCH (08:36)
[2020-12-20] MEDS: FAMOTIDINE 20MG/2ML VIAL IV SCH (08:37)
[2020-12-20] MEDS: AMLODIPINE 10MG TABLET PO SCH ×2 (08:37→20:55)
[2020-12-20] MEDS: DEXAMETHASONE 4MG TABLET PO SCH (08:37)
[2020-12-20 11:14] LABS: PLATELET ESTIMATE NORMAL
[2020-12-20] MEDS ORDERED: FUROSEMIDE 40MG/4ML VIAL IVP NR (11:45)
[2020-12-20 14:07] LABS: BG BASE EXCESS 0.7 mmol/L (-2.0-2.0); BG CARBOXYHEMOGLOBIN 0.5 % (0.5-1.5); BG DEOXYHEMOGLOBIN 1.6 % (0.0-5.0); BG FRACTION INSPIRED OXYGEN 60; BG HCO3 ACT 26.1 mmol/L (22.0-26.0); BG METHEMOGLOBIN 0.3 % (0.0-1.5); BG OXYGEN SATURATION 98.4 % (92.0-98.5); BG OXYHEMOGLOBIN 97.6 % (94.0-97.0); BG PCO2 45.1 mmHg (35.0-45.0); BG PO2 136.3 mmHg (75.0-100.0); BG SAMPLE SITE RIGHT RADIAL; BG TOTAL HEMOGLOBIN 11.9 g/dL (12.0-18.0); BG TOTAL RESPIRATORY RATE 21 b/min; BG VENT MODE MASK - BIPAP
[2020-12-21] VITALS (12 sets, daily range): BP systolic 98–135; BP diastolic 44–77
[2020-12-21] MEDS: ACETYLCYSTEINE 100MG/ML 10% VIAL 4ML INH SCH ×3 (00:16→16:54)
[2020-12-21] MEDS: IPRATROPIUM/ALBUTEROL 0.5-3(2.5)MG/3ML NEB HHN SCH ×6 (00:18→20:20)
[2020-12-21 05:48] LABS: BASOPHILS % 0.4 % (0.0-2.0); EOSINOPHILS % 2.2 % (0.0-5.0); HEMATOCRIT. 30.8 % (42.0-52.0); HEMOGLOBIN. 10.2 g/dL (14.0-18.0); LYMPHOCYTES % 8.3 % (20.0-50.0); MEAN CORPUSCULAR HEMOGLOBIN 30.4 pg (28.0-32.0); MEAN CORPUSCULAR VOLUME 91.5 fL (80.0-94.0); MEAN PLATELET VOLUME 7.5 fl (7.4-10.4); MONOCYTES % 8.1 % (2.0-8.0); PLATELET 272 x1000/uL (130-400); RED BLOOD CELL COUNT 3.37 mill/uL (4.7-6.1); RED CELL DISTRIBUTION WIDTH 13.9 % (11.6-14.6)
[2020-12-21] MEDS: INSULIN LISPRO 100 UNITS/ML SUBCUT SCH ×5 (06:00→23:24)
[2020-12-21] MEDS: HYDRALAZINE HCL 100MG TABLET NG SCH ×3 (06:13→21:06)
[2020-12-21] MEDS: ENOXAPARIN 100MG/ML SYR SUBCUT SCH ×2 (06:13→17:40)
[2020-12-21] MEDS: CLONIDINE 0.1MG TABLET NG SCH ×3 (06:13→21:07)
[2020-12-21] MEDS: BLOOD SUGAR DIAGNOSTIC STRIP TEST SCH ×5 (06:14→23:24)
[2020-12-21 06:39] LABS: PHOSPHORUS 2.8 mg/dL (2.5-4.9)
[2020-12-21] MEDS ORDERED: FUROSEMIDE 40MG/4ML VIAL IVP NR (08:45)
[2020-12-21] MEDS: METOPROLOL TARTRATE 25MG TABLET PO SCH (09:00)
[2020-12-21] MEDS: AMLODIPINE 10MG TABLET PO SCH ×2 (09:00→21:07)
[2020-12-21] MEDS: FAMOTIDINE 20MG/2ML VIAL IV SCH (10:12)
[2020-12-21] MEDS: DOCUSATE SODIUM SUGAR FREE 100MG/10ML UDC NG SCH (10:12)
[2020-12-21] MEDS: DEXAMETHASONE 4MG TABLET PO SCH (10:12)
[2020-12-21] MEDS ORDERED: LACTULOSE 20G/30ML UDC PO SCH (11:30)
[2020-12-21 11:55] LABS: BG BASE EXCESS 1.2 mmol/L (-2.0-2.0); BG CARBOXYHEMOGLOBIN 0.3 % (0.5-1.5); BG FRACTION INSPIRED OXYGEN 60; BG HCO3 ACT 27.1 mmol/L (22.0-26.0); BG METHEMOGLOBIN 0.1 % (0.0-1.5); BG OXYHEMOGLOBIN 97.6 % (94.0-97.0); BG PCO2 48.6 mmHg (35.0-45.0); BG PH 7.364 (7.350-7.450); BG PO2 119.2 mmHg (75.0-100.0); BG SAMPLE SITE RIGHT RADIAL; BG TOTAL HEMOGLOBIN 11.6 g/dL (12.0-18.0); BG TOTAL RESPIRATORY RATE 20 b/min; BG VENT MODE MASK - BIPAP
[2020-12-21] MEDS: METOPROLOL TARTRATE 50MG TABLET PO SCH (21:07)
[2020-12-22] VITALS (16 sets, daily range): BP systolic 103–140; BP diastolic 51–66
[2020-12-22] MEDS: IPRATROPIUM/ALBUTEROL 0.5-3(2.5)MG/3ML NEB HHN SCH ×6 (00:20→21:26)
[2020-12-22] MEDS: ACETYLCYSTEINE 100MG/ML 10% VIAL 4ML INH SCH ×4 (00:20→16:00)
[2020-12-22] MEDS: HYDRALAZINE HCL 100MG TABLET NG SCH ×3 (05:14→21:34)
[2020-12-22] MEDS: ENOXAPARIN 100MG/ML SYR SUBCUT SCH ×2 (05:14→18:01)
[2020-12-22] MEDS: CLONIDINE 0.1MG TABLET NG SCH ×3 (05:15→21:34)
[2020-12-22] MEDS: INSULIN LISPRO 100 UNITS/ML SUBCUT SCH ×3 (05:59→18:00)
[2020-12-22] MEDS: BLOOD SUGAR DIAGNOSTIC STRIP TEST SCH ×3 (05:59→17:56)
[2020-12-22 06:27] LABS: BASOPHILS % 0.2 % (0.0-2.0); EOSINOPHILS % 2.5 % (0.0-5.0); HEMATOCRIT. 28.7 % (42.0-52.0); HEMOGLOBIN. 9.9 g/dL (14.0-18.0); LYMPHOCYTES % 10.2 % (20.0-50.0); MEAN CORPUSCULAR HEMOGLOBIN 31.2 pg (28.0-32.0); MEAN CORPUSCULAR VOLUME 89.8 fL (80.0-94.0); MEAN PLATELET VOLUME 7.4 fl (7.4-10.4); MONOCYTES % 7.9 % (2.0-8.0); NEUTROPHILS % 79.2 % (40.0-76.0); PLATELET 273 x1000/uL (130-400); RED BLOOD CELL COUNT 3.19 mill/uL (4.7-6.1); RED CELL DISTRIBUTION WIDTH 13.9 % (11.6-14.6)
[2020-12-22 06:42] LABS: CHLORIDE 110 mEq/L (98-107)
[2020-12-22 06:51] LABS: PHOSPHORUS 2.7 mg/dL (2.5-4.9)
[2020-12-22 06:52] LABS: TOTAL IRON BINDING CAPACITY 176 ug/dL (250-450)
[2020-12-22 08:21] LABS: BG BASE EXCESS 2.5 mmol/L (-2.0-2.0); BG CARBOXYHEMOGLOBIN 0.3 % (0.5-1.5); BG FRACTION INSPIRED OXYGEN 60; BG HCO3 ACT 28.1 mmol/L (22.0-26.0); BG METHEMOGLOBIN 0.3 % (0.0-1.5); BG OXYHEMOGLOBIN 97.4 % (94.0-97.0); BG PCO2 48.1 mmHg (35.0-45.0); BG PH 7.384 (7.350-7.450); BG PO2 115.3 mmHg (75.0-100.0); BG SAMPLE SITE RIGHT RADIAL; BG TOTAL HEMOGLOBIN 10.7 g/dL (12.0-18.0); BG VENT MODE MASK - BIPAP
[2020-12-22] MEDS: DEXAMETHASONE 4MG TABLET PO SCH (09:14)
[2020-12-22] MEDS: DOCUSATE SODIUM SUGAR FREE 100MG/10ML UDC NG SCH (09:14)
[2020-12-22] MEDS: AMLODIPINE 10MG TABLET PO SCH ×2 (09:14→21:35)
[2020-12-22] MEDS: FAMOTIDINE 20MG/2ML VIAL IV SCH (09:14)
[2020-12-22] MEDS: METOPROLOL TARTRATE 50MG TABLET PO SCH ×2 (09:15→21:34)
[2020-12-22] MEDS ORDERED: FUROSEMIDE 40MG/4ML VIAL IVP NR (10:00)
[2020-12-22] MEDS: POLYETHYLENE GLYCOL 3350 (17GM) 1 DOSE PACK PO SCH (12:31)
[2020-12-22] MEDS: SENNOSIDES/DOCUSATE SOD 8.6/50MG TABLET PO SCH ×2 (12:32→16:41)
[2020-12-23] VITALS (12 sets, daily range): BP systolic 96–126; BP diastolic 51–62
[2020-12-23] MEDS: IPRATROPIUM/ALBUTEROL 0.5-3(2.5)MG/3ML NEB HHN SCH ×6 (00:40→20:58)
[2020-12-23] MEDS: BLOOD SUGAR DIAGNOSTIC STRIP TEST SCH ×5 (04:57→23:36)
[2020-12-23] MEDS: ENOXAPARIN 100MG/ML SYR SUBCUT SCH ×2 (05:00→17:42)
[2020-12-23] MEDS: CLONIDINE 0.1MG TABLET NG SCH ×3 (05:01→21:10)
[2020-12-23] MEDS: HYDRALAZINE HCL 100MG TABLET NG SCH ×3 (05:01→21:10)
[2020-12-23 05:07] LABS: CHLORIDE 105 mEq/L (98-107)
[2020-12-23 05:12] LABS: PHOSPHORUS 2.2 mg/dL (2.5-4.9)
[2020-12-23 05:53] LABS: BASOPHILS % 0.4 % (0.0-2.0); EOSINOPHILS % 2.6 % (0.0-5.0); HEMATOCRIT. 32.3 % (42.0-52.0); HEMOGLOBIN. 10.8 g/dL (14.0-18.0); LYMPHOCYTES % 11.1 % (20.0-50.0); MEAN CORPUSCULAR HEMOGLOBIN 30.5 pg (28.0-32.0); MEAN CORPUSCULAR VOLUME 91.4 fL (80.0-94.0); MEAN PLATELET VOLUME 7.6 fl (7.4-10.4); MONOCYTES % 8.9 % (2.0-8.0); PLATELET 294 x1000/uL (130-400); RED BLOOD CELL COUNT 3.54 mill/uL (4.7-6.1); RED CELL DISTRIBUTION WIDTH 13.9 % (11.6-14.6)
[2020-12-23] MEDS: INSULIN LISPRO 100 UNITS/ML SUBCUT SCH ×5 (06:00→23:36)
[2020-12-23] MEDS: ACETYLCYSTEINE 100MG/ML 10% VIAL 4ML INH SCH (08:03)
[2020-12-23] MEDS ORDERED: FUROSEMIDE 40MG/4ML VIAL IVP NR (08:30)
[2020-12-23] MEDS: FAMOTIDINE 20MG TABLET PO SCH (09:20)
[2020-12-23] MEDS: POLYETHYLENE GLYCOL 3350 (17GM) 1 DOSE PACK PO SCH (09:20)
[2020-12-23] MEDS: DEXAMETHASONE 4MG TABLET PO SCH (09:21)
[2020-12-23] MEDS: SENNOSIDES/DOCUSATE SOD 8.6/50MG TABLET PO SCH ×2 (09:21→17:43)
[2020-12-23] MEDS: AMLODIPINE 10MG TABLET PO SCH ×2 (09:22→21:10)
[2020-12-23] MEDS: METOPROLOL TARTRATE 50MG TABLET PO SCH ×2 (09:25→21:09)
[2020-12-23] MEDS ORDERED: POTASSIUM PHOS,M-BASIC-D-BASIC 15 MMOL in DEXT 5% WATER 245 ML IV NR (10:00)
[2020-12-23] MEDS: ONDANSETRON HCL 4MG/2ML INJ IV PRN (21:10)
[2020-12-24] VITALS (12 sets, daily range): BP systolic 92–126; BP diastolic 48–67
[2020-12-24] MEDS: IPRATROPIUM/ALBUTEROL 0.5-3(2.5)MG/3ML NEB HHN SCH ×6 (00:27→21:15)
[2020-12-24] MEDS: ENOXAPARIN 100MG/ML SYR SUBCUT SCH ×2 (05:02→17:48)
[2020-12-24] MEDS: ACETAMINOPHEN 650MG/20.3ML UDC NG PRN (05:02)
[2020-12-24] MEDS: ONDANSETRON HCL 4MG/2ML INJ IV PRN (05:02)
[2020-12-24] MEDS: CLONIDINE 0.1MG TABLET NG SCH ×3 (05:03→22:05)
[2020-12-24] MEDS: HYDRALAZINE HCL 100MG TABLET NG SCH (05:03)
[2020-12-24] MEDS: BLOOD SUGAR DIAGNOSTIC STRIP TEST SCH ×3 (06:00→18:54)
[2020-12-24] MEDS: INSULIN LISPRO 100 UNITS/ML SUBCUT SCH ×3 (06:00→17:49)
[2020-12-24 07:15] LABS: BASOPHILS % 0.4 % (0.0-2.0); EOSINOPHILS % 3.3 % (0.0-5.0); HEMATOCRIT. 31.2 % (42.0-52.0); HEMOGLOBIN. 10.5 g/dL (14.0-18.0); LYMPHOCYTES % 15.6 % (20.0-50.0); MEAN CORPUSCULAR HEMOGLOBIN 30.8 pg (28.0-32.0); MEAN CORPUSCULAR VOLUME 91.8 fL (80.0-94.0); MEAN PLATELET VOLUME 7.5 fl (7.4-10.4); MONOCYTES % 8.8 % (2.0-8.0); NEUTROPHILS % 71.9 % (40.0-76.0); PLATELET 296 x1000/uL (130-400); RED CELL DISTRIBUTION WIDTH 14.1 % (11.6-14.6)
[2020-12-24 07:20] LABS: CHLORIDE 103 mEq/L (98-107)
[2020-12-24 07:43] LABS: PHOSPHORUS 2.5 mg/dL (2.5-4.9)
[2020-12-24] MEDS: FAMOTIDINE 20MG TABLET PO SCH (08:55)
[2020-12-24] MEDS: POLYETHYLENE GLYCOL 3350 (17GM) 1 DOSE PACK PO SCH (08:55)
[2020-12-24] MEDS: DEXAMETHASONE 4MG TABLET PO SCH (08:55)
[2020-12-24] MEDS: METOPROLOL TARTRATE 50MG TABLET PO SCH ×2 (08:58→22:04)
[2020-12-24] MEDS: AMLODIPINE 10MG TABLET PO SCH (08:58)
[2020-12-24] MEDS ORDERED: FUROSEMIDE 40MG/4ML VIAL IVP NR (09:15)
[2020-12-24] MEDS: SENNOSIDES/DOCUSATE SOD 8.6/50MG TABLET PO SCH ×2 (09:52→17:45)
[2020-12-24 12:51] LABS: BG BASE EXCESS 7.1 mmol/L (-2.0-2.0); BG CARBOXYHEMOGLOBIN 0.3 % (0.5-1.5); BG FRACTION INSPIRED OXYGEN 36; BG HCO3 ACT 32.5 mmol/L (22.0-26.0); BG METHEMOGLOBIN 0.1 % (0.0-1.5); BG OXYHEMOGLOBIN 94.6 % (94.0-97.0); BG PH 7.431 (7.350-7.450); BG PO2 75.3 mmHg (75.0-100.0); BG SAMPLE SITE RIGHT RADIAL; BG VENT MODE NASAL CANNULA
[2020-12-24] MEDS: HYDRALAZINE HCL 50MG TABLET NG SCH ×2 (13:08→22:04)
[2020-12-24] MEDS ORDERED: BISACODYL 10MG SUPP PR NR (18:30)
[2020-12-25] VITALS (12 sets, daily range): BP systolic 105–141; BP diastolic 54–76
[2020-12-25] MEDS: IPRATROPIUM/ALBUTEROL 0.5-3(2.5)MG/3ML NEB HHN SCH ×6 (00:18→20:21)
[2020-12-25] MEDS: INSULIN LISPRO 100 UNITS/ML SUBCUT SCH ×5 (06:00→23:41)
[2020-12-25] MEDS: BLOOD SUGAR DIAGNOSTIC STRIP TEST SCH ×5 (06:25→23:41)
[2020-12-25] MEDS: ENOXAPARIN 100MG/ML SYR SUBCUT SCH ×2 (06:36→17:40)
[2020-12-25] MEDS: HYDRALAZINE HCL 50MG TABLET NG SCH ×3 (06:37→21:25)
[2020-12-25] MEDS: CLONIDINE 0.1MG TABLET NG SCH ×3 (06:37→21:25)
[2020-12-25 07:54] LABS: BASOPHILS % 0.5 % (0.0-2.0); EOSINOPHILS % 2.3 % (0.0-5.0); HEMATOCRIT. 31.9 % (42.0-52.0); HEMOGLOBIN. 10.7 g/dL (14.0-18.0); LYMPHOCYTES % 11.6 % (20.0-50.0); MEAN CORPUSCULAR HEMOGLOBIN 30.5 pg (28.0-32.0); MEAN CORPUSCULAR VOLUME 91.2 fL (80.0-94.0); MEAN PLATELET VOLUME 7.5 fl (7.4-10.4); MONOCYTES % 9.1 % (2.0-8.0); NEUTROPHILS % 76.5 % (40.0-76.0); PLATELET 286 x1000/uL (130-400); RED CELL DISTRIBUTION WIDTH 14.4 % (11.6-14.6)
[2020-12-25 08:15] LABS: PHOSPHORUS 1.7 mg/dL (2.5-4.9)
[2020-12-25 08:49] LABS: BG BASE EXCESS 9.6 mmol/L (-2.0-2.0); BG CARBOXYHEMOGLOBIN 0.2 % (0.5-1.5); BG FRACTION INSPIRED OXYGEN 36; BG HCO3 ACT 34.2 mmol/L (22.0-26.0); BG METHEMOGLOBIN 0.3 % (0.0-1.5); BG OXYHEMOGLOBIN 95.5 % (94.0-97.0); BG PCO2 46.5 mmHg (35.0-45.0); BG PH 7.484 (7.350-7.450); BG SAMPLE SITE RIGHT RADIAL; BG TOTAL HEMOGLOBIN 11.2 g/dL (12.0-18.0); BG VENT MODE NASAL CANNULA
[2020-12-25] MEDS: POLYETHYLENE GLYCOL 3350 (17GM) 1 DOSE PACK PO SCH (09:00)
[2020-12-25] MEDS: SENNOSIDES/DOCUSATE SOD 8.6/50MG TABLET PO SCH ×2 (09:00→17:00)
[2020-12-25] MEDS: ACETAMINOPHEN 650MG/20.3ML UDC NG PRN (09:41)
[2020-12-25] MEDS: DEXAMETHASONE 4MG TABLET PO SCH (09:41)
[2020-12-25] MEDS: FAMOTIDINE 20MG TABLET PO SCH (09:41)
[2020-12-25] MEDS: AMLODIPINE 10MG TABLET PO SCH (10:16)
[2020-12-25] MEDS: METOPROLOL TARTRATE 50MG TABLET PO SCH ×2 (10:16→21:25)
[2020-12-25] MEDS ORDERED: SODIUM PHOS,M-BASIC-D-BASIC 30 MM in DEXT 5% WATER 500 ML IV NR (11:00)
[2020-12-25] MEDS ORDERED: MAGNESIUM HYDROXIDE 400MG/5ML 30ML UDC PO PRN (16:45)
[2020-12-25] MEDS: ONDANSETRON HCL 4MG/2ML INJ IV PRN (21:24)
[2020-12-26] VITALS (9 sets, daily range): BP systolic 90–150; BP diastolic 50–72
[2020-12-26] MEDS: IPRATROPIUM/ALBUTEROL 0.5-3(2.5)MG/3ML NEB HHN SCH ×6 (00:49→20:07)
[2020-12-26] MEDS: HYDRALAZINE HCL 50MG TABLET NG SCH ×3 (05:04→21:00)
[2020-12-26] MEDS: CLONIDINE 0.1MG TABLET NG SCH ×3 (05:05→21:00)
[2020-12-26] MEDS: INSULIN LISPRO 100 UNITS/ML SUBCUT SCH ×4 (05:05→23:39)
[2020-12-26] MEDS: ENOXAPARIN 100MG/ML SYR SUBCUT SCH ×2 (05:05→17:55)
[2020-12-26] MEDS: ONDANSETRON HCL 4MG/2ML INJ IV PRN (05:05)
[2020-12-26] MEDS: BLOOD SUGAR DIAGNOSTIC STRIP TEST SCH ×4 (05:06→23:39)
[2020-12-26] MEDS: POLYETHYLENE GLYCOL 3350 (17GM) 1 DOSE PACK PO SCH (08:00)
[2020-12-26 08:01] LABS: HEMATOCRIT. 32.1 % (42.0-52.0); HEMOGLOBIN. 10.7 g/dL (14.0-18.0); MEAN CORPUSCULAR HEMOGLOBIN 31.1 pg (28.0-32.0); MEAN CORPUSCULAR VOLUME 92.9 fL (80.0-94.0); MEAN PLATELET VOLUME 7.4 fl (7.4-10.4); PLATELET 295 x1000/uL (130-400); RED BLOOD CELL COUNT 3.45 mill/uL (4.7-6.1); RED CELL DISTRIBUTION WIDTH 14.1 % (11.6-14.6)
[2020-12-26 08:06] LABS: CHLORIDE 103 mEq/L (98-107)
[2020-12-26 08:18] LABS: PHOSPHORUS 3.1 mg/dL (2.5-4.9)
[2020-12-26] MEDS: SENNOSIDES/DOCUSATE SOD 8.6/50MG TABLET PO SCH ×2 (08:39→17:00)
[2020-12-26] MEDS: DEXAMETHASONE 4MG TABLET PO SCH (08:45)
[2020-12-26] MEDS: FAMOTIDINE 20MG TABLET PO SCH (08:45)
[2020-12-26] MEDS: METOPROLOL TARTRATE 50MG TABLET PO SCH ×2 (08:46→20:57)
[2020-12-26] MEDS: AMLODIPINE 10MG TABLET PO SCH (08:46)
[2020-12-26 08:56] LABS: BG CARBOXYHEMOGLOBIN 0.3 % (0.5-1.5); BG FRACTION INSPIRED OXYGEN 28; BG HCO3 ACT 30.1 mmol/L (22.0-26.0); BG METHEMOGLOBIN 0.3 % (0.0-1.5); BG OXYHEMOGLOBIN 94.4 % (94.0-97.0); BG PCO2 46.6 mmHg (35.0-45.0); BG PH 7.428 (7.350-7.450); BG SAMPLE SITE RIGHT RADIAL; BG TOTAL HEMOGLOBIN 11.3 g/dL (12.0-18.0); BG VENT MODE NASAL CANNULA
[2020-12-26 14:06] LABS: PLATELET ESTIMATE NORMAL
[2020-12-27] VITALS: BP 114/56
[2020-12-27] MEDS: IPRATROPIUM/ALBUTEROL 0.5-3(2.5)MG/3ML NEB HHN SCH ×6 (00:04→20:14)
[2020-12-27 03:30] VITALS: BP 134/67
[2020-12-27] MEDS: CLONIDINE 0.1MG TABLET NG SCH ×2 (05:33→20:27)
[2020-12-27] MEDS: HYDRALAZINE HCL 50MG TABLET NG SCH ×3 (05:33→21:49)
[2020-12-27] MEDS: ENOXAPARIN 100MG/ML SYR SUBCUT SCH ×2 (05:33→17:24)
[2020-12-27] MEDS: INSULIN LISPRO 100 UNITS/ML SUBCUT SCH ×3 (05:33→17:25)
[2020-12-27] MEDS: BLOOD SUGAR DIAGNOSTIC STRIP TEST SCH ×3 (05:34→17:00)
[2020-12-27 08:00] VITALS: BP 130/60
[2020-12-27 08:18] LABS: CHLORIDE 102 mEq/L (98-107)
[2020-12-27 08:20] LABS: HEMATOCRIT. 33.1 % (42.0-52.0); HEMOGLOBIN. 10.9 g/dL (14.0-18.0); MEAN PLATELET VOLUME 7.2 fl (7.4-10.4); PLATELET 299 x1000/uL (130-400); RED BLOOD CELL COUNT 3.52 mill/uL (4.7-6.1); RED CELL DISTRIBUTION WIDTH 14.5 % (11.6-14.6)
[2020-12-27 08:24] LABS: PHOSPHORUS 2.7 mg/dL (2.5-4.9)
[2020-12-27] MEDS: SENNOSIDES/DOCUSATE SOD 8.6/50MG TABLET PO SCH ×2 (09:00→16:48)
[2020-12-27] MEDS: AMLODIPINE 10MG TABLET PO SCH (09:35)
[2020-12-27] MEDS: DEXAMETHASONE 4MG TABLET PO SCH (09:35)
[2020-12-27] MEDS: FAMOTIDINE 20MG TABLET PO SCH (09:35)
[2020-12-27] MEDS: METOPROLOL TARTRATE 50MG TABLET PO SCH ×2 (09:36→21:03)
[2020-12-27] MEDS: POLYETHYLENE GLYCOL 3350 (17GM) 1 DOSE PACK PO SCH (09:36)
[2020-12-27 10:05] LABS: HEPATITIS B SURFACE AB 3.9 mIU/mL
[2020-12-27 10:21] LABS: BG CARBOXYHEMOGLOBIN 0.8 % (0.5-1.5); BG DEOXYHEMOGLOBIN 7.9 % (0.0-5.0); BG FRACTION INSPIRED OXYGEN 28; BG HCO3 ACT 28.5 mmol/L (22.0-26.0); BG OXYHEMOGLOBIN 91.3 % (94.0-97.0); BG PCO2 42.6 mmHg (35.0-45.0); BG PH 7.444 (7.350-7.450); BG PO2 60.9 mmHg (75.0-100.0); BG SAMPLE SITE RIGHT BRACHIAL; BG VENT MODE NASAL CANNULA
[2020-12-27 12:00] VITALS: BP 129/50
[2020-12-27 13:33] LABS: PLATELET ESTIMATE NORMAL
[2020-12-27 16:00] VITALS: BP 120/60
[2020-12-27 20:00] VITALS: BP 113/59
[2020-12-28] VITALS: BP 96/63
[2020-12-28] MEDS: BLOOD SUGAR DIAGNOSTIC STRIP TEST SCH ×4 (00:04→17:10)
[2020-12-28 04:00] VITALS: BP 130/58
[2020-12-28] MEDS: ENOXAPARIN 100MG/ML SYR SUBCUT SCH ×2 (05:17→17:11)
[2020-12-28] MEDS: HYDRALAZINE HCL 50MG TABLET NG SCH ×3 (05:18→22:00)
[2020-12-28] MEDS: INSULIN LISPRO 100 UNITS/ML SUBCUT SCH ×4 (06:00→17:11)
[2020-12-28 06:49] LABS: BASOPHILS % 0.3 % (0.0-2.0); HEMATOCRIT. 34.7 % (42.0-52.0); HEMOGLOBIN. 11.5 g/dL (14.0-18.0); LYMPHOCYTES % 16.2 % (20.0-50.0); MEAN CORPUSCULAR HEMOGLOBIN 31.3 pg (28.0-32.0); MEAN CORPUSCULAR VOLUME 94.5 fL (80.0-94.0); MONOCYTES % 9.3 % (2.0-8.0); NEUTROPHILS % 71.2 % (40.0-76.0); PLATELET 308 x1000/uL (130-400); RED BLOOD CELL COUNT 3.68 mill/uL (4.7-6.1); RED CELL DISTRIBUTION WIDTH 14.8 % (11.6-14.6)
[2020-12-28 07:04] LABS: CHLORIDE 105 mEq/L (98-107)
[2020-12-28 08:00] VITALS: BP 154/67
[2020-12-28] MEDS: SENNOSIDES/DOCUSATE SOD 8.6/50MG TABLET PO SCH ×2 (09:02→16:47)
[2020-12-28] MEDS: CLONIDINE 0.1MG TABLET NG SCH ×2 (09:02→20:49)
[2020-12-28] MEDS: METOPROLOL TARTRATE 50MG TABLET PO SCH ×2 (09:02→21:03)
[2020-12-28] MEDS: AMLODIPINE 10MG TABLET PO SCH (09:02)
[2020-12-28] MEDS: DEXAMETHASONE 4MG TABLET PO SCH (09:02)
[2020-12-28] MEDS: FAMOTIDINE 20MG TABLET PO SCH (09:02)
[2020-12-28] MEDS: POLYETHYLENE GLYCOL 3350 (17GM) 1 DOSE PACK PO SCH (09:03)
[2020-12-28] MEDS: IPRATROPIUM/ALBUTEROL 0.5-3(2.5)MG/3ML NEB HHN SCH ×3 (09:35→17:23)
[2020-12-28 12:00] VITALS: BP 126/63
[2020-12-28] MEDS: ACETAMINOPHEN 650MG/20.3ML UDC NG PRN (12:39)
[2020-12-28 16:00] VITALS: BP 98/50
[2020-12-28] MEDS ORDERED: HALOPERIDOL LACTATE 5MG/ML VIAL IM NR (19:00)
[2020-12-28 20:00] VITALS: BP 132/76
[2020-12-29] VITALS: BP 147/70
[2020-12-29] MEDS: BLOOD SUGAR DIAGNOSTIC STRIP TEST SCH ×4 (00:28→17:25)
[2020-12-29 04:00] VITALS: BP 140/64
[2020-12-29] MEDS: ENOXAPARIN 100MG/ML SYR SUBCUT SCH ×2 (05:13→17:39)
[2020-12-29] MEDS: HYDRALAZINE HCL 50MG TABLET NG SCH ×3 (05:14→22:16)
[2020-12-29] MEDS: INSULIN LISPRO 100 UNITS/ML SUBCUT SCH ×4 (05:50→17:38)
[2020-12-29 07:17] LABS: BASOPHILS % 0.6 % (0.0-2.0); HEMATOCRIT. 35.4 % (42.0-52.0); HEMOGLOBIN. 11.8 g/dL (14.0-18.0); MEAN CORPUSCULAR HEMOGLOBIN 31.4 pg (28.0-32.0); MEAN CORPUSCULAR VOLUME 94.5 fL (80.0-94.0); MEAN PLATELET VOLUME 7.2 fl (7.4-10.4); MONOCYTES % 7.1 % (2.0-8.0); NEUTROPHILS % 72.3 % (40.0-76.0); PLATELET 315 x1000/uL (130-400); RED BLOOD CELL COUNT 3.75 mill/uL (4.7-6.1); RED CELL DISTRIBUTION WIDTH 14.9 % (11.6-14.6)
[2020-12-29 07:35] LABS: CHLORIDE 105 mEq/L (98-107)
[2020-12-29 07:49] LABS: PHOSPHORUS 2.7 mg/dL (2.5-4.9)
[2020-12-29 08:00] VITALS: BP 152/70
[2020-12-29] MEDS: IPRATROPIUM/ALBUTEROL 0.5-3(2.5)MG/3ML NEB HHN SCH ×4 (08:16→20:38)
[2020-12-29] MEDS: FAMOTIDINE 20MG TABLET PO SCH (09:12)
[2020-12-29] MEDS: SENNOSIDES/DOCUSATE SOD 8.6/50MG TABLET PO SCH ×2 (09:12→17:38)
[2020-12-29] MEDS: DEXAMETHASONE 4MG TABLET PO SCH (09:12)
[2020-12-29] MEDS: CLONIDINE 0.1MG TABLET NG SCH ×2 (09:12→20:47)
[2020-12-29] MEDS: AMLODIPINE 10MG TABLET PO SCH (09:12)
[2020-12-29] MEDS: METOPROLOL TARTRATE 50MG TABLET PO SCH ×2 (09:13→20:48)
[2020-12-29] MEDS: POLYETHYLENE GLYCOL 3350 (17GM) 1 DOSE PACK PO SCH (09:13)
[2020-12-29 12:00] VITALS: BP 138/66
[2020-12-29 13:55] LABS: HEPATITIS B SURFACE ANTIGEN NEGATIVE
[2020-12-29 16:00] VITALS: BP 114/59
[2020-12-29 19:22] LABS: BG BASE EXCESS 3.1 mmol/L (-2.0-2.0); BG CARBOXYHEMOGLOBIN 0.9 % (0.5-1.5); BG DEOXYHEMOGLOBIN 10.7 % (0.0-5.0); BG FRACTION INSPIRED OXYGEN 21; BG HCO3 ACT 27.8 mmol/L (22.0-26.0); BG METHEMOGLOBIN 0.3 % (0.0-1.5); BG OXYGEN SATURATION 89.2 % (92.0-98.5); BG OXYHEMOGLOBIN 88.1 % (94.0-97.0); BG PCO2 42.5 mmHg (35.0-45.0); BG PH 7.433 (7.350-7.450); BG PO2 54.6 mmHg (75.0-100.0); BG SAMPLE SITE RIGHT RADIAL; BG TOTAL HEMOGLOBIN 12.3 g/dL (12.0-18.0); BG VENT MODE ROOM AIR
[2020-12-29 20:00] VITALS: BP 97/64
[2020-12-30] VITALS: BP 119/68
[2020-12-30] MEDS: BLOOD SUGAR DIAGNOSTIC STRIP TEST SCH ×4 (00:20→17:53)
[2020-12-30] MEDS: INSULIN LISPRO 100 UNITS/ML SUBCUT SCH ×4 (00:39→17:43)
[2020-12-30] MEDS: IPRATROPIUM/ALBUTEROL 0.5-3(2.5)MG/3ML NEB HHN SCH ×6 (00:46→20:40)
[2020-12-30 04:00] VITALS: BP 142/69
[2020-12-30] MEDS: HYDRALAZINE HCL 50MG TABLET NG SCH ×3 (05:29→23:43)
[2020-12-30] MEDS: ENOXAPARIN 100MG/ML SYR SUBCUT SCH ×2 (05:31→18:37)
[2020-12-30 07:14] LABS: HEMATOCRIT. 37.2 % (42.0-52.0); HEMOGLOBIN. 12.4 g/dL (14.0-18.0); MEAN CORPUSCULAR HEMOGLOBIN 31.4 pg (28.0-32.0); MEAN CORPUSCULAR VOLUME 94.5 fL (80.0-94.0); MEAN PLATELET VOLUME 7.2 fl (7.4-10.4); PLATELET 338 x1000/uL (130-400); RED BLOOD CELL COUNT 3.94 mill/uL (4.7-6.1); RED CELL DISTRIBUTION WIDTH 15.6 % (11.6-14.6)
[2020-12-30 07:21] LABS: CHLORIDE 105 mEq/L (98-107)
[2020-12-30 08:00] VITALS: BP 113/59
[2020-12-30] MEDS: CLONIDINE 0.1MG TABLET NG SCH ×2 (09:00→21:40)
[2020-12-30] MEDS: POLYETHYLENE GLYCOL 3350 (17GM) 1 DOSE PACK PO SCH (09:40)
[2020-12-30] MEDS: FAMOTIDINE 20MG TABLET PO SCH (09:40)
[2020-12-30] MEDS: DEXAMETHASONE 4MG TABLET PO SCH (09:40)
[2020-12-30] MEDS: SENNOSIDES/DOCUSATE SOD 8.6/50MG TABLET PO SCH ×2 (09:40→17:42)
[2020-12-30] MEDS: METOPROLOL TARTRATE 50MG TABLET PO SCH ×2 (09:41→21:46)
[2020-12-30] MEDS: AMLODIPINE 10MG TABLET PO SCH (11:02)
[2020-12-30] MEDS ORDERED: [UNRECOGNIZED DRUG - CODE] MT (11:49)
[2020-12-30 12:00] VITALS: BP 114/55
[2020-12-30 14:18] LABS: PLATELET ESTIMATE NORMAL
[2020-12-30 16:00] VITALS: BP 103/43
[2020-12-30 20:00] VITALS: BP 119/49
[2020-12-31] VITALS (7 sets, daily range): BP systolic 97–150; BP diastolic 50–69
[2020-12-31] MEDS: IPRATROPIUM/ALBUTEROL 0.5-3(2.5)MG/3ML NEB HHN SCH ×4 (00:58→21:19)
[2020-12-31] MEDS: BLOOD SUGAR DIAGNOSTIC STRIP TEST SCH ×4 (05:31→17:21)
[2020-12-31] MEDS: INSULIN LISPRO 100 UNITS/ML SUBCUT SCH ×4 (05:32→17:26)
[2020-12-31] MEDS: ENOXAPARIN 100MG/ML SYR SUBCUT SCH ×2 (05:53→17:24)
[2020-12-31] MEDS: HYDRALAZINE HCL 50MG TABLET NG SCH ×3 (06:59→22:33)
[2020-12-31] MEDS: CLONIDINE 0.1MG TABLET NG SCH ×2 (09:00→21:00)
[2020-12-31] MEDS: AMLODIPINE 10MG TABLET PO SCH (09:28)
[2020-12-31] MEDS: METOPROLOL TARTRATE 50MG TABLET PO SCH ×2 (09:28→21:00)
[2020-12-31] MEDS: DEXAMETHASONE 4MG TABLET PO SCH (09:28)
[2020-12-31] MEDS: POLYETHYLENE GLYCOL 3350 (17GM) 1 DOSE PACK PO SCH (09:28)
[2020-12-31] MEDS: SENNOSIDES/DOCUSATE SOD 8.6/50MG TABLET PO SCH ×2 (09:28→17:26)
[2020-12-31] MEDS: FAMOTIDINE 20MG TABLET PO SCH (09:29)
[2021-01-01 00:34] VITALS: BP 134/58
[2021-01-01] MEDS: IPRATROPIUM/ALBUTEROL 0.5-3(2.5)MG/3ML NEB HHN SCH ×6 (01:11→21:36)
[2021-01-01 04:00] VITALS: BP 141/66
[2021-01-01] MEDS: HYDRALAZINE HCL 50MG TABLET NG SCH ×3 (06:39→21:08)
[2021-01-01] MEDS: ENOXAPARIN 100MG/ML SYR SUBCUT SCH ×2 (06:40→16:31)
[2021-01-01] MEDS: BLOOD SUGAR DIAGNOSTIC STRIP TEST SCH ×5 (06:53→23:12)
[2021-01-01] MEDS: INSULIN LISPRO 100 UNITS/ML SUBCUT SCH ×4 (06:54→16:32)
[2021-01-01 08:00] VITALS: BP 112/61
[2021-01-01] MEDS: POLYETHYLENE GLYCOL 3350 (17GM) 1 DOSE PACK PO SCH (09:51)
[2021-01-01] MEDS: METOPROLOL TARTRATE 50MG TABLET PO SCH ×2 (09:51→21:08)
[2021-01-01] MEDS: CLONIDINE 0.1MG TABLET NG SCH ×2 (09:51→20:37)
[2021-01-01] MEDS: AMLODIPINE 10MG TABLET PO SCH (09:52)
[2021-01-01] MEDS: SENNOSIDES/DOCUSATE SOD 8.6/50MG TABLET PO SCH ×2 (09:52→16:31)
[2021-01-01] MEDS: DEXAMETHASONE 4MG TABLET PO SCH (09:52)
[2021-01-01] MEDS: FAMOTIDINE 20MG TABLET PO SCH (09:52)
[2021-01-01 12:00] VITALS: BP 92/50
[2021-01-01 16:00] VITALS: BP 95/50
[2021-01-01 20:00] VITALS: BP 108/59
[2021-01-02] VITALS: BP 120/56
[2021-01-02] MEDS: INSULIN LISPRO 100 UNITS/ML SUBCUT SCH ×4 (00:03→17:31)
[2021-01-02] MEDS: IPRATROPIUM/ALBUTEROL 0.5-3(2.5)MG/3ML NEB HHN SCH ×5 (01:00→16:00)
[2021-01-02 04:00] VITALS: BP 106/61
[2021-01-02] MEDS: HYDRALAZINE HCL 50MG TABLET NG SCH ×2 (05:09→13:50)
[2021-01-02] MEDS: BLOOD SUGAR DIAGNOSTIC STRIP TEST SCH ×3 (05:10→17:28)
[2021-01-02] MEDS: ENOXAPARIN 100MG/ML SYR SUBCUT SCH (05:11)
[2021-01-02 08:00] VITALS: BP 128/63
[2021-01-02] MEDS: CLONIDINE 0.1MG TABLET NG SCH (08:45)
[2021-01-02] MEDS: METOPROLOL TARTRATE 50MG TABLET PO SCH (08:45)
[2021-01-02] MEDS: AMLODIPINE 10MG TABLET PO SCH (08:57)
[2021-01-02] MEDS: ACETAMINOPHEN 650MG/20.3ML UDC NG PRN (08:58)
[2021-01-02] MEDS: SENNOSIDES/DOCUSATE SOD 8.6/50MG TABLET PO SCH ×2 (08:58→17:30)
[2021-01-02] MEDS: DEXAMETHASONE 4MG TABLET PO SCH (08:58)
[2021-01-02] MEDS: POLYETHYLENE GLYCOL 3350 (17GM) 1 DOSE PACK PO SCH (08:58)
[2021-01-02] MEDS: FAMOTIDINE 20MG TABLET PO SCH (08:58)
[2021-01-02 12:00] VITALS: BP 122/65
[2021-01-02] MEDS ORDERED: AMLO10TA80 PO (12:48)
[2021-01-02] MEDS ORDERED: ALBU6.7H9 INH (12:48)
[2021-01-02] MEDS ORDERED: FAMO20TA8 PO (12:48)
[2021-01-02 16:00] VITALS: BP 117/46
[2021-01-02 16:31] VITALS: BP 117/46
[2021-01-02] MEDS ORDERED: ENOXAPARIN 80MG/0.8ML SYR SUBCUT SCH (17:00)
== END 2021-01-02 18:54 | disposition home or self-care (01) | DRG 720 ==
LOC: ER 09:29 → EDSEX 09:29 → MICUSO 13:33 → EDBEDREQ 13:42 → EDBEDREQSVC 13:42 → SUPCPDRO 13:48 → MICUSO 12-08 15:08 → 5EST 12-18 22:15 → 7EST 12-27 16:11
PROVIDERS: ADMIT Internal Medicine; ATTEND Internal Medicine
PROC: 5A1955Z Respiratory Ventilation, Greater than 96 Consecutive Hours (ICD-10-PCS; principal; 2020-12-07)
PROC: 0BH17EZ Insertion of Endotracheal Airway into Trachea, Via Natural or Artificial Opening (ICD-10-PCS; 2020-12-07)
PROC: 05H533Z Insertion of Infusion Device into Right Subclavian Vein, Percutaneous Approach (ICD-10-PCS; 2020-12-09)
PROC: B546ZZA Ultrasonography of Right Subclavian Vein, Guidance (ICD-10-PCS; 2020-12-09)
PROC: 5A09457 Assistance with Respiratory Ventilation, 24-96 Consecutive Hours, Continuous Positive Airway Pressure (ICD-10-PCS; 2020-12-20)
DX: A41.89 Other specified sepsis (principal); N17.0 Acute kidney failure with tubular necrosis; J12.82 Pneumonia due to coronavirus disease 2019; J80 Acute respiratory distress syndrome; G93.41 Metabolic encephalopathy; U07.1 COVID-19; E66.9 Obesity, unspecified; E87.5 Hyperkalemia; I24.8 Other forms of acute ischemic heart disease; R65.20 Severe sepsis without septic shock; I16.0 Hypertensive urgency; K59.00 Constipation, unspecified; E87.0 Hyperosmolality and hypernatremia; R74.01 Elevation of levels of liver transaminase levels; I48.0 Paroxysmal atrial fibrillation; E11.9 Type 2 diabetes mellitus without complications; D64.9 Anemia, unspecified; D68.59 Other primary thrombophilia; Z68.28 Body mass index [BMI] 28.0-28.9, adult; Z86.73 Personal history of transient ischemic attack (TIA), and cerebral infarction without residual deficits; Z78.1 Physical restraint status; Z82.49 Family history of ischemic heart disease and other diseases of the circulatory system
CPT/HCPCS: 36415; 36600; 71045; 74176; 76770; 76937; 80048; 80053; 80202; 80320; 81003; 82140; 82375; 82550; 82607; 82728; 82746; 82805; 82962; 83036; 83540; 83550; 83605; 83615; 83735; 84100; 84134; 84145; 84478; 84484; 85025; 85044; 86140; 86141; 86160; 86705; 86706; 86709; 86803; 87070; 87077; 87340; 87426; 92610; 93005; 93306; 94002; 94003; 94640; 94660; 94667; 97110; 97116; 97162; 97166; 97530; 97535; 99291; A6261; C1725; C1769; C1893; J0330; J0360; J0456; J0696; J1100; J1630; J1650; J1815; J1940; J2270; J2405; J2704; J3010; J3370; J3480; J3490; J7030; J7050; J7060; J7608; J8540; U0003; U0005; G0480